=== PATIENT | female | born 2000 | race Caucasian/White ===

== ENCOUNTER 2019-03-24 12:02 | Emergency (ER) | payer OTHER ==
[~2019-03-24] VITALS: Ht 170.2 cm; Wt 59.0 kg
[2019-03-24] MEDS ORDERED: MEDROL4 MG PO (13:25)
[2019-03-24] MEDS ORDERED: NEURONTIN300 MG PO (13:25)
== END 2019-03-24 13:41 | disposition home or self-care (01) ==
LOC: ED 12:02
DX: T65.891A Toxic effect of other specified substances, accidental (unintentional), initial encounter (principal); L25.3 Unspecified contact dermatitis due to other chemical products; Z88.0 Allergy status to penicillin
CPT/HCPCS: 99283